=== PATIENT | female | born 1990 | race Caucasian/White ===

== ENCOUNTER → 2016-09-20 | Outpatient (CLI) | payer BC ==
[2016-09-20 11:21] LABS: B-HCG QUANTITATIVE < 1 mIU/mL (<3)
== END | disposition home or self-care (01) ==
LOC: LAB 10:34
PROVIDERS: ATTEND Obstetrics & Gynecology Obstetrics
DX: N91.5 Oligomenorrhea, unspecified (principal); E03.9 Hypothyroidism, unspecified; E22.1 Hyperprolactinemia
CPT/HCPCS: 36415; 84146; 84443; 84702

== ENCOUNTER 2016-10-02 22:01 | Emergency (ER) | payer BC ==
[~2016-10-02] VITALS: Ht 170.2 cm; Wt 105.0 kg
[2016-10-02] MEDS ORDERED: KETOROLAC 60MG/2ML VIAL IM STA (23:46)
[2016-10-02] MEDS ORDERED: ONDANSETRON 4MG ODT PO STA (23:46)
[2016-10-03 00:24] LABS: CLARITY URINE CLOUDY (CLEAR); COLOR URINE DARK YELLOW (YELLOW); GLUCOSE URINE NEGATIVE (NEGATIVE); KETONES URINE TRACE (NEGATIVE); LEUKOCYTE ESTERASE URINE 2+ (NEGATIVE); NITRITE URINE NEGATIVE (NEGATIVE); OCCULT BLOOD URINE TRACE (NEGATIVE); PH URINE 5.5 (4.5-8.0); PROTEIN URINE NEGATIVE (NEGATIVE); SPECIFIC GRAVITY URINE 1.032 (1.005-1.030); UROBILINOGEN URINE 0.2 E.U./dL (0.2-1.0)
[2016-10-03 01:00] LABS: BACTERIA URINE 3+; RBC URINE 0-2 /hpf (0-2); SQUAMOUS EPITHELIAL CELL URINE 2+ /lpf (RARE/1+); WBC URINE 15-25 /hpf (0-2)
[2016-10-03 01:02] VITALS: BP 129/67
== END 2016-10-03 01:10 | disposition home or self-care (01) ==
LOC: ER 22:04
DX: N39.0 Urinary tract infection, site not specified (principal)
CPT/HCPCS: 81001; 81003; 81025; 96372; 99283